=== PATIENT | female | born 1985 | race Two or more races ===

== ENCOUNTER → 2017-08-11 | Emergency (ER) | payer OTHER ==
[~2017-08-11] VITALS: Ht 160 cm; Wt 77.1 kg
[~2017-08-11] MED LIST: TRAMADOL HCL50 MG
== END | disposition home or self-care (01) ==
LOC: ER 13:55
DX: N83.292 Other ovarian cyst, left side (principal)

== ENCOUNTER → 2017-08-14 | Emergency (ER) | payer OTHER ==
[~2017-08-14] VITALS: Ht 160 cm; Wt 79.4 kg
== END | disposition home or self-care (01) ==
LOC: ER 11:50
DX: N83.292 Other ovarian cyst, left side (principal); R10.2 Pelvic and perineal pain